=== PATIENT | female | born 1940 | race Caucasian/White ===

== ENCOUNTER 2017-08-18 19:03 | Emergency (ER) | payer OTHER, MEDICARE ==
[~2017-08-18] VITALS: Ht 167.6 cm; Wt 62.0 kg
[~2017-08-18 19:03] MED LIST: ASPIR-TRIN325 M1 PO; BISOPROLOL-HCT1 EAC3 PO; CIPRO500 MG PO; K-DUR20 MEQ PO; LOVASTATIN10 MG PO; METRONIDAZOLE500 MG PO; NORVASC2.5 MG PO; PROTONIX40 MG PO; VITAMIN A DAY1 EACH PO
[2017-08-18 19:45] LABS: BASOPHIL COUNT 0.1 K/uL (0-0.1); EOSINOPHIL (%) 6.4 % (0-5); EOSINOPHIL COUNT 0.6 K/uL (0-0.3); HEMATOCRIT 41.6 % (36.0-46.0); IMMATURE GRANULOCYTE (%) 0.2 % (0.0-0.7); INSTRUMENT ABS NEUTROPHIL CT 4.7 K/uL; LYMPHOCYTE COUNT 2.7 K/uL (1.0-2.8); MCH 30.2 PG (29.0-34.0); MCHC 34.4 G/DL (30.0-36.0); MCV 87.9 FL (83-99); MONOCYTE (%) 10.3 % (3-12); MONOCYTE COUNT 0.9 K/uL (0-0.8); NEUTROPHIL (%) 52.4 % (45-76); NEUTROPHIL COUNT 4.7 K/uL (1.8-6.4); PLATELET COUNT 211 K/uL (156-360); RBC DIS.WIDTH-CV 12.2 % (11.8-14.6); RBC DIS.WIDTH-SD 39.2 % (39-53); RED BLOOD COUNT 4.73 M/uL (3.80-5.20)
[2017-08-18 20:02] LABS: CHLORIDE 103 mEq/L (99-109); POTASSIUM 2.9 mEq/L (3.7-5.4); SODIUM 141 mEq/L (136-147)
[2017-08-18 20:03] LABS: MAGNESIUM 1.9 mg/dL (1.3-2.7)
[2017-08-18 20:04] LABS: GLUCOSE 96 mg/dL (70-99)
[2017-08-18 20:05] LABS: ANION GAP 11 MEQ/L (2-14)
[2017-08-18 20:06] LABS: TOTAL BILIRUBIN 0.6 mg/dL (0.0-1.0)
[2017-08-18 20:08] LABS: ALKALINE PHOSPHATASE 71 IU/L (3-129); GFR ESTIMATE (CALCULATED) 57 mL/min/
[2017-08-18 20:09] LABS: UREA NITROGEN (BUN) 11 mg/dL (9-23)
[2017-08-18 20:10] LABS: TROP-I INTERPRETATION NEGATIVE; TROPONIN-I < 0.01 ng/mL (0.0-0.30)
[2017-08-18 20:11] LABS: CREATINE KINASE 82 IU/L (1-294); TOTAL CK 82 IU/L (1-294)
[2017-08-18 20:18] LABS: CK-MB 1.3 ng/mL (0.0-4.9)
[2017-08-18 20:38] LABS: ADD MIUA? YES; BILIRUBIN NEGATIVE; BLOOD SMALL; COLOR YELLOW ((YELLOW)); GLUCOSE (STRIP) NEGATIVE; KETONES NEGATIVE; LEUKOCYTES LARGE; NITRITE NEGATIVE; PROTEIN (STRIP) NEGATIVE; SPECIFIC GRAVITY 1.005 (1.000-1.030); UROBILINOGEN 0.2 MG/DL (0.2-1.0)
[2017-08-18 20:47] LABS: BACTERIA RARE /HPF; EPITHELIAL CELLS NONE SEEN /HPF; MUCUS TRACE /LPF; RED BLOOD CELLS 0-5 /HPF (0-5); UCUL ADDED? YES; WHITE BLOOD CELLS TNTC /HPF (0-5)
[2017-08-18] MEDS ORDERED: ESCITALOPRAM OXA5 MG PO (20:51)
[2017-08-18] MEDS ORDERED: EFFEXOR37.5 MG PO (20:51)
[2017-08-18] MEDS ORDERED: MEMANTINE HCL10 MG PO (20:51)
[2017-08-18] MEDS ORDERED: MACROBID100 MG PO (22:39)
[2017-08-19 00:41] VITALS: BP 139/78
== END 2017-08-19 00:44 | disposition home or self-care (01) ==
LOC: EME → EDBD 19:03 → EME 08-19 00:44
PROVIDERS: Emergency Medicine
DX: I95.1 Orthostatic hypotension (principal); N39.0 Urinary tract infection, site not specified; E87.6 Hypokalemia; E86.0 Dehydration; I10 Essential (primary) hypertension; F03.90 Unspecified dementia, unspecified severity, without behavioral disturbance, psychotic disturbance, mood disturbance, and anxiety
CPT/HCPCS: 71020; 80053; 81003; 82550; 82553; 83735; 83880; 84484; 85025; 87077; 87086; 87186; 93005; 99281; 99285; J3480; J7030; J7040

== ENCOUNTER 2017-10-30 12:23 | Inpatient (IN) | payer OTHER, MEDICARE ==
[~2017-10-30] VITALS: Ht 160 cm; Wt 77.0 kg
[~2017-10-30 12:23] MED LIST changes: +EFFEXOR75 MG PO; +ESCITALOPRAM OXA5 MG PO; -LOVASTATIN10 MG PO; +LOVASTATIN20 MG PO; +MACROBID100 MG PO; +MEMANTINE HCL10 MG PO
[2017-10-30 13:17] LABS: BASOPHIL COUNT 0.1 K/uL (0-0.1); EOSINOPHIL (%) 3.6 % (0-5); EOSINOPHIL COUNT 0.3 K/uL (0-0.3); HEMATOCRIT 40.8 % (36.0-46.0); IMMATURE GRANULOCYTE (%) 1.2 % (0.0-0.7); IMMATURE GRANULOCYTE COUNT 0.1 K/uL; INSTRUMENT ABS NEUTROPHIL CT 5.3 K/uL; LYMPHOCYTE COUNT 1.6 K/uL (1.0-2.8); MCH 30.5 PG (29.0-34.0); MCHC 34.1 G/DL (30.0-36.0); MCV 89.5 FL (83-99); MEAN PLAT.VOLUME 11.1 uM^3 (9.5-12.4); MONOCYTE (%) 9.2 % (3-12); MONOCYTE COUNT 0.7 K/uL (0-0.8); NEUTROPHIL (%) 65.3 % (45-76); NEUTROPHIL COUNT 5.3 K/uL (1.8-6.4); PLATELET COUNT 184 K/uL (156-360); RBC DIS.WIDTH-CV 12.6 % (11.8-14.6); RBC DIS.WIDTH-SD 41.3 % (39-53); RED BLOOD COUNT 4.56 M/uL (3.80-5.20); WHITE BLOOD COUNT 8.1 K/uL (4.1-10.2)
[2017-10-30 13:30] LABS: CHLORIDE 100 mEq/L (99-109); POTASSIUM 3.2 mEq/L (3.7-5.4); SODIUM 143 mEq/L (136-147)
[2017-10-30 13:32] LABS: GLUCOSE 108 mg/dL (70-99)
[2017-10-30 13:33] LABS: ANION GAP 12 MEQ/L (2-14)
[2017-10-30 13:36] LABS: GFR ESTIMATE (CALCULATED) 51 mL/min/; UREA NITROGEN (BUN) 21 mg/dL (9-23)
[2017-10-30 13:41] LABS: TROP-I INTERPRETATION NEGATIVE; TROPONIN-I 0.01 ng/mL (0.0-0.30)
[2017-10-30 15:46] LABS: MAGNESIUM 1.8 mg/dL (1.3-2.7)
[2017-10-30 15:55] LABS: CREATINE KINASE 77 IU/L (1-294); TOTAL CK 77 IU/L (1-294)
[2017-10-30 16:02] LABS: CK-MB 1.1 ng/mL (0.0-4.9)
[2017-10-30] MEDS ORDERED: ZIAC 2.5/6.251 TAB PO (16:43)
[2017-10-30 19:52] LABS: TROP-I INTERPRETATION NEGATIVE; TROPONIN-I 0.01 ng/mL (0.0-0.30)
[2017-10-30 20:00] VITALS: BP 130/62
[2017-10-31 01:00] VITALS: BP 108/54
[2017-10-31 01:08] LABS: TROP-I INTERPRETATION NEGATIVE; TROPONIN-I < 0.01 ng/mL (0.0-0.30)
[2017-10-31 05:00] LABS: BASOPHIL COUNT 0.1 K/uL (0-0.1); EOSINOPHIL (%) 1.2 % (0-5); EOSINOPHIL COUNT 0.1 K/uL (0-0.3); HEMATOCRIT 37.1 % (36.0-46.0); IMMATURE GRANULOCYTE (%) 0.3 % (0.0-0.7); INSTRUMENT ABS NEUTROPHIL CT 5.7 K/uL; LYMPHOCYTE COUNT 1.1 K/uL (1.0-2.8); MCH 33.7 PG (29.0-34.0); MCHC 35.8 G/DL (30.0-36.0); MEAN PLAT.VOLUME 11.9 uM^3 (9.5-12.4); MONOCYTE (%) 8.9 % (3-12); MONOCYTE COUNT 0.7 K/uL (0-0.8); NEUTROPHIL (%) 74.3 % (45-76); NEUTROPHIL COUNT 5.7 K/uL (1.8-6.4); PLATELET COUNT 172 K/uL (156-360); RBC DIS.WIDTH-CV 12.9 % (11.8-14.6); RBC DIS.WIDTH-SD 42.3 % (39-53); RED BLOOD COUNT 3.95 M/uL (3.80-5.20); WHITE BLOOD COUNT 7.7 K/uL (4.1-10.2)
[2017-10-31 05:01] LABS: MCV 93.9 FL (83-99)
[2017-10-31 05:12] LABS: CHLORIDE 102 mEq/L (99-109); POTASSIUM 3.4 mEq/L (3.7-5.4); SODIUM 142 mEq/L (136-147)
[2017-10-31 05:14] LABS: GLUCOSE 124 mg/dL (70-99)
[2017-10-31 05:16] LABS: ANION GAP 16 MEQ/L (2-14)
[2017-10-31 05:18] LABS: GFR ESTIMATE (CALCULATED) 57 mL/min/
[2017-10-31 05:19] LABS: UREA NITROGEN (BUN) 24 mg/dL (9-23)
[2017-10-31 12:05] VITALS: BP 155/69
[2017-10-31 15:56] VITALS: BP 188/78
[2017-10-31 20:26] VITALS: BP 138/69
[2017-11-01 00:08] VITALS: BP 153/70
[2017-11-01 01:32] LABS: ADD MIUA? NO; BILIRUBIN NEGATIVE; BLOOD NEGATIVE; COLOR YELLOW ((YELLOW)); GLUCOSE (STRIP) 50; KETONES NEGATIVE; LEUKOCYTES NEGATIVE; NITRITE NEGATIVE; PROTEIN (STRIP) NEGATIVE; SPECIFIC GRAVITY 1.011 (1.000-1.030); UCUL ADDED? NO; UROBILINOGEN 0.2 MG/DL (0.2-1.0)
[2017-11-01 04:47] VITALS: BP 119/69
[2017-11-01 06:12] LABS: BASOPHIL COUNT 0.1 K/uL (0-0.1); EOSINOPHIL (%) 5.3 % (0-5); EOSINOPHIL COUNT 0.5 K/uL (0-0.3); HEMATOCRIT 39.5 % (36.0-46.0); IMMATURE GRANULOCYTE (%) 0.2 % (0.0-0.7); INSTRUMENT ABS NEUTROPHIL CT 4.8 K/uL; LYMPHOCYTE COUNT 2.3 K/uL (1.0-2.8); MCHC 33.9 G/DL (30.0-36.0); MCV 91.4 FL (83-99); MEAN PLAT.VOLUME 11.2 uM^3 (9.5-12.4); MONOCYTE (%) 11.6 % (3-12); NEUTROPHIL (%) 55.3 % (45-76); NEUTROPHIL COUNT 4.8 K/uL (1.8-6.4); PLATELET COUNT 164 K/uL (156-360); RBC DIS.WIDTH-CV 12.6 % (11.8-14.6); RBC DIS.WIDTH-SD 41.8 % (39-53); RED BLOOD COUNT 4.32 M/uL (3.80-5.20); WHITE BLOOD COUNT 8.6 K/uL (4.1-10.2)
[2017-11-01 06:39] LABS: ALKALINE PHOSPHATASE 61 IU/L (3-129); ANION GAP 9 MEQ/L (2-14); CHLORIDE 103 MEQ/L (99-109); GFR ESTIMATE (CALCULATED) > 59 mL/min/; GLUCOSE 122 mg/dL (70-99); POTASSIUM 3.8 MEQ/L (3.7-5.4); SAMPLE HEMOLYSIS CHECK 0; SAMPLE ICTERIC CHECK 0; SAMPLE LIPEMIA CHECK 0; SODIUM 142 MEQ/L (136-147); TOTAL BILIRUBIN 0.9 MG/DL (0.0-1.0); UREA NITROGEN (BUN) 16 mg/dL (9-23)
[2017-11-01 07:10] VITALS: BP 168/76
[2017-11-01 16:36] VITALS: BP 178/82
[2017-11-01 19:00] VITALS: BP 182/84
[2017-11-02 02:22] VITALS: BP 159/77
[2017-11-02 06:17] LABS: BASOPHIL COUNT 0.1 K/uL (0-0.1); EOSINOPHIL (%) 1.7 % (0-5); EOSINOPHIL COUNT 0.2 K/uL (0-0.3); HEMATOCRIT 37.5 % (36.0-46.0); IMMATURE GRANULOCYTE (%) 0.3 % (0.0-0.7); INSTRUMENT ABS NEUTROPHIL CT 5.6 K/uL; LYMPHOCYTE COUNT 1.8 K/uL (1.0-2.8); MCH 30.9 PG (29.0-34.0); MCHC 34.4 G/DL (30.0-36.0); MCV 89.9 FL (83-99); MONOCYTE (%) 11.2 % (3-12); NEUTROPHIL (%) 65.3 % (45-76); NEUTROPHIL COUNT 5.6 K/uL (1.8-6.4); PLATELET COUNT 170 K/uL (156-360); RBC DIS.WIDTH-CV 12.6 % (11.8-14.6); RBC DIS.WIDTH-SD 41.5 % (39-53); RED BLOOD COUNT 4.17 M/uL (3.80-5.20); WHITE BLOOD COUNT 8.6 K/uL (4.1-10.2)
[2017-11-02 06:43] LABS: ALKALINE PHOSPHATASE 59 IU/L (3-129); ANION GAP 9 MEQ/L (2-14); CHLORIDE 105 MEQ/L (99-109); GFR ESTIMATE (CALCULATED) > 59 mL/min/; GLUCOSE 113 mg/dL (70-99); POTASSIUM 3.4 MEQ/L (3.7-5.4); SAMPLE HEMOLYSIS CHECK 0; SAMPLE ICTERIC CHECK 0; SAMPLE LIPEMIA CHECK 0; SODIUM 142 MEQ/L (136-147); TOTAL BILIRUBIN 0.8 MG/DL (0.0-1.0); UREA NITROGEN (BUN) 10 mg/dL (9-23)
[2017-11-02 11:46] VITALS: BP 147/79
[2017-11-02 16:25] VITALS: BP 146/81
[2017-11-02 19:29] VITALS: BP 162/84
[2017-11-03 05:29] LABS: BASOPHIL COUNT 0.1 K/uL (0-0.1); EOSINOPHIL (%) 4.6 % (0-5); EOSINOPHIL COUNT 0.4 K/uL (0-0.3); HEMATOCRIT 36.4 % (36.0-46.0); IMMATURE GRANULOCYTE (%) 0.4 % (0.0-0.7); INSTRUMENT ABS NEUTROPHIL CT 3.9 K/uL; LYMPHOCYTE COUNT 2.6 K/uL (1.0-2.8); MCH 31.1 PG (29.0-34.0); MCHC 33.8 G/DL (30.0-36.0); MCV 91.9 FL (83-99); MONOCYTE (%) 14.2 % (3-12); MONOCYTE COUNT 1.1 K/uL (0-0.8); NEUTROPHIL (%) 48.5 % (45-76); NEUTROPHIL COUNT 3.9 K/uL (1.8-6.4); PLATELET COUNT 173 K/uL (156-360); RBC DIS.WIDTH-SD 43.5 % (39-53); RED BLOOD COUNT 3.96 M/uL (3.80-5.20); WHITE BLOOD COUNT 8.1 K/uL (4.1-10.2)
[2017-11-03 05:52] LABS: CHLORIDE 105 MEQ/L (99-109); GFR ESTIMATE (CALCULATED) > 59 mL/min/; GLUCOSE 99 mg/dL (70-99); POTASSIUM 3.7 MEQ/L (3.7-5.4); SAMPLE HEMOLYSIS CHECK 0; SAMPLE ICTERIC CHECK 0; SAMPLE LIPEMIA CHECK 0; SODIUM 142 MEQ/L (136-147); UREA NITROGEN (BUN) 18 mg/dL (9-23)
[2017-11-03 05:53] LABS: ANION GAP 9 MEQ/L (2-14)
[2017-11-03 08:40] VITALS: BP 201/90
[2017-11-03 20:35] VITALS: BP 118/68
[2017-11-03 23:25] VITALS: BP 104/58
[2017-11-04 05:54] LABS: BASOPHIL COUNT 0.1 K/uL (0-0.1); EOSINOPHIL COUNT 0.5 K/uL (0-0.3); HEMATOCRIT 39.3 % (36.0-46.0); IMMATURE GRANULOCYTE (%) 0.4 % (0.0-0.7); IMMATURE GRANULOCYTE COUNT 0.1 K/uL; INSTRUMENT ABS NEUTROPHIL CT 5.5 K/uL; LYMPHOCYTE COUNT 4.6 K/uL (1.0-2.8); MCH 31.7 PG (29.0-34.0); MCHC 34.1 G/DL (30.0-36.0); MCV 92.9 FL (83-99); MEAN PLAT.VOLUME 10.8 uM^3 (9.5-12.4); MONOCYTE (%) 11.3 % (3-12); MONOCYTE COUNT 1.4 K/uL (0-0.8); NEUTROPHIL (%) 45.4 % (45-76); NEUTROPHIL COUNT 5.5 K/uL (1.8-6.4); RBC DIS.WIDTH-CV 13.1 % (11.8-14.6); RBC DIS.WIDTH-SD 43.5 % (39-53); RED BLOOD COUNT 4.23 M/uL (3.80-5.20); WHITE BLOOD COUNT 12.1 K/uL (4.1-10.2)
[2017-11-04 06:10] LABS: PLATELET COUNT 246 K/uL (156-360)
[2017-11-04 06:21] LABS: ANION GAP 12 MEQ/L (2-14); CHLORIDE 103 MEQ/L (99-109); GFR ESTIMATE (CALCULATED) 46 mL/min/; GLUCOSE 126 mg/dL (70-99); POTASSIUM 3.6 MEQ/L (3.7-5.4); SAMPLE HEMOLYSIS CHECK 0; SAMPLE ICTERIC CHECK 0; SAMPLE LIPEMIA CHECK 0; SODIUM 141 MEQ/L (136-147); UREA NITROGEN (BUN) 24 mg/dL (9-23)
[2017-11-04 11:52] VITALS: BP 162/65
[2017-11-04 16:42] VITALS: BP 151/71
[2017-11-04 19:00] VITALS: BP 120/61
[2017-11-05 08:00] VITALS: BP 145/66
[2017-11-05 09:21] LABS: BASOPHIL COUNT 0.1 K/uL (0-0.1); EOSINOPHIL (%) 5.4 % (0-5); EOSINOPHIL COUNT 0.5 K/uL (0-0.3); HEMATOCRIT 38.9 % (36.0-46.0); IMMATURE GRANULOCYTE (%) 0.4 % (0.0-0.7); INSTRUMENT ABS NEUTROPHIL CT 4.5 K/uL; LYMPHOCYTE COUNT 2.7 K/uL (1.0-2.8); MCH 31.3 PG (29.0-34.0); MCHC 33.2 G/DL (30.0-36.0); MCV 94.4 FL (83-99); MEAN PLAT.VOLUME 10.9 uM^3 (9.5-12.4); MONOCYTE (%) 13.4 % (3-12); MONOCYTE COUNT 1.2 K/uL (0-0.8); NEUTROPHIL (%) 49.7 % (45-76); NEUTROPHIL COUNT 4.5 K/uL (1.8-6.4); PLATELET COUNT 191 K/uL (156-360); RBC DIS.WIDTH-CV 13.2 % (11.8-14.6); RBC DIS.WIDTH-SD 45.4 % (39-53); RED BLOOD COUNT 4.12 M/uL (3.80-5.20)
[2017-11-05 10:01] LABS: CHLORIDE 109 MEQ/L (99-109); GFR ESTIMATE (CALCULATED) > 59 mL/min/; SAMPLE HEMOLYSIS CHECK 1; SAMPLE ICTERIC CHECK 0; SAMPLE LIPEMIA CHECK 0; SODIUM 142 MEQ/L (136-147); UREA NITROGEN (BUN) 28 mg/dL (9-23)
[2017-11-05 10:02] LABS: ANION GAP 7 MEQ/L (2-14); GLUCOSE 90 mg/dL (70-99); POTASSIUM 4.6 MEQ/L (3.7-5.4)
[2017-11-05 12:00] VITALS: BP 164/78
[2017-11-05 21:00] VITALS: BP 128/60
[2017-11-06 03:35] VITALS: BP 107/57
[2017-11-06 07:57] VITALS: BP 135/62
[2017-11-06 11:58] VITALS: BP 127/68
[2017-11-06] MEDS ORDERED: LISINOPRIL20 MG PO (12:34)
[2017-11-06 16:33] VITALS: BP 111/54
[2017-11-07] MEDS ORDERED: KEFLEX500 MG PO (10:53)
== END 2017-11-06 16:22 | DRG 57 ==
LOC: EME 12:23 → EDOF 14:40 → 5WEST 14:40 → EDOF 14:40 → ENRESERV 14:41 → 5WEST 17:28 → ENRESERV 11-01 23:51 → CANRESERV 11-01 23:51 → 5WEST 11-06 16:22
PROVIDERS: Emergency Medicine; Hospitalist; Physician Assistant
DX: G30.9 Alzheimer's disease, unspecified (principal); F02.81 Dementia in other diseases classified elsewhere, unspecified severity, with behavioral disturbance; F05 Delirium due to known physiological condition; R55 Syncope and collapse; R00.1 Bradycardia, unspecified; E87.6 Hypokalemia; E78.5 Hyperlipidemia, unspecified; I10 Essential (primary) hypertension; I25.10 Atherosclerotic heart disease of native coronary artery without angina pectoris; G43.909 Migraine, unspecified, not intractable, without status migrainosus; S30.0XXA Contusion of lower back and pelvis, initial encounter; W19.XXXA Unspecified fall, initial encounter; W22.01XA Walked into wall, initial encounter; Y92.002 Bathroom of unspecified non-institutional (private) residence as the place of occurrence of the external cause; R29.6 Repeated falls
CPT/HCPCS: 70450; 71010; 72125; 72131; 80048; 80053; 81003; 82550; 82550 91; 82553; 82607; 82746; 83735; 84443; 84484; 85025; 93005; 93880; 95819; 99281; 99285; G0378; J0360; J1630; J1650; J2060; J2270

== ENCOUNTER 2017-11-07 07:13 | Inpatient (IN) | payer OTHER, MEDICARE ==
[~2017-11-07] VITALS: Ht 167.6 cm; Wt 61.3 kg
[~2017-11-07 07:13] MED LIST changes: +LISINOPRIL20 MG PO; +ZIAC 2.5/6.251 TAB PO
[2017-11-07 08:09] LABS: HEMATOCRIT 35.5 % (36.0-46.0); MCH 31.1 PG (29.0-34.0); MCHC 33.8 G/DL (30.0-36.0); PLATELET COUNT 212 K/uL (156-360); RBC DIS.WIDTH-CV 13.1 % (11.8-14.6); RBC DIS.WIDTH-SD 43.9 % (39-53); RED BLOOD COUNT 3.86 M/uL (3.80-5.20)
[2017-11-07 08:17] LABS: APPEARANCE SL.HAZY ((CLEAR)); BILIRUBIN NEGATIVE; BLOOD NEGATIVE; COLOR YELLOW ((YELLOW)); GLUCOSE (STRIP) 50; KETONES NEGATIVE; LEUKOCYTES MODERATE; NITRITE NEGATIVE; PROTEIN (STRIP) 30; UROBILINOGEN 0.2 MG/DL (0.2-1.0)
[2017-11-07 08:21] LABS: BACTERIA NONE SEEN /HPF; EPITHELIAL CELLS RARE /HPF; HYALINE CASTS TNTC /LPF; MUCUS 2+ /LPF
[2017-11-07 08:36] LABS: ALBUMIN 3.8 G/DL (3.2-4.8); CHLORIDE 106 MEQ/L (99-109); SODIUM 141 MEQ/L (136-147); TOTAL BILIRUBIN 0.7 MG/DL (0.0-1.0)
[2017-11-07 08:43] LABS: ALKALINE PHOSPHATASE 64 IU/L (3-129); ALT (GPT) 14 IU/L (3-49); AST (GOT) 18 IU/L (2-34); GFR ESTIMATE (CALCULATED) 36 mL/min/; GLUCOSE 101 mg/dL (70-99); TOTAL PROTEIN 6.7 G/DL (6.4-8.3)
[2017-11-07 08:44] LABS: CREATININE 1.5 MG/DL (0.6-1.3); UREA NITROGEN (BUN) 43 mg/dL (9-23)
[2017-11-07] MEDS ORDERED: KEFLEX500 MG PO (10:53)
[2017-11-07 19:40] VITALS: BP 142/65
[2017-11-07 23:12] VITALS: BP 119/57
[2017-11-08 04:11] VITALS: BP 106/55
[2017-11-08 06:35] LABS: CHLORIDE 108 MEQ/L (99-109); CREATININE 0.8 MG/DL (0.6-1.3); GFR ESTIMATE (CALCULATED) > 59 mL/min/; GLUCOSE 81 mg/dL (70-99); POTASSIUM 3.7 MEQ/L (3.7-5.4); SODIUM 142 MEQ/L (136-147); UREA NITROGEN (BUN) 22 mg/dL (9-23)
[2017-11-08 15:24] VITALS: BP 133/62
[2017-11-08 23:02] VITALS: BP 144/63
[2017-11-09 07:24] VITALS: BP 107/54
[2017-11-09 16:26] VITALS: BP 164/73
[2017-11-10 04:16] VITALS: BP 150/84
[2017-11-10 07:18] VITALS: BP 127/60
[2017-11-10 15:21] VITALS: BP 155/72
[2017-11-10 23:36] VITALS: BP 134/72
[2017-11-11 07:38] VITALS: BP 153/72
[2017-11-11 15:00] VITALS: BP 127/61
[2017-11-12 07:16] VITALS: BP 164/77
[2017-11-13 07:40] VITALS: BP 136/63
[2017-11-13 15:44] VITALS: BP 126/60
[2017-11-14 00:03] VITALS: BP 152/67
[2017-11-14 07:25] VITALS: BP 143/69
[2017-11-14 15:28] VITALS: BP 166/77
[2017-11-14 23:22] VITALS: BP 151/74
[2017-11-15 07:46] VITALS: BP 181/78
[2017-11-15 09:31] LABS: HEMATOCRIT 36.2 % (36.0-46.0); HEMOGLOBIN 12.1 G/DL (11.9-15.5); MCH 31.2 PG (29.0-34.0); MCHC 33.4 G/DL (30.0-36.0); MCV 93.3 FL (83-99); PLATELET COUNT 218 K/uL (156-360); RBC DIS.WIDTH-CV 12.9 % (11.8-14.6); RBC DIS.WIDTH-SD 43.9 % (39-53); RED BLOOD COUNT 3.88 M/uL (3.80-5.20)
[2017-11-15 10:00] LABS: CHLORIDE 107 MEQ/L (99-109); CREATININE 0.9 MG/DL (0.6-1.3); GFR ESTIMATE (CALCULATED) > 59 mL/min/; GLUCOSE 114 mg/dL (70-99); POTASSIUM 3.5 MEQ/L (3.7-5.4); SODIUM 141 MEQ/L (136-147); UREA NITROGEN (BUN) 24 mg/dL (9-23)
[2017-11-15 15:41] VITALS: BP 176/80
[2017-11-16 08:13] VITALS: BP 162/80
[2017-11-17 00:06] VITALS: BP 171/73
[2017-11-17 08:01] VITALS: BP 159/74
[2017-11-17 09:29] LABS: HEMATOCRIT 35.2 % (36.0-46.0); HEMOGLOBIN 11.7 G/DL (11.9-15.5); MCH 30.5 PG (29.0-34.0); MCHC 33.2 G/DL (30.0-36.0); MCV 91.7 FL (83-99); PLATELET COUNT 228 K/uL (156-360); RBC DIS.WIDTH-CV 13.2 % (11.8-14.6); RBC DIS.WIDTH-SD 44.1 % (39-53); RED BLOOD COUNT 3.84 M/uL (3.80-5.20)
[2017-11-17 10:00] LABS: CHLORIDE 107 MEQ/L (99-109); CREATININE 0.9 MG/DL (0.6-1.3); GFR ESTIMATE (CALCULATED) > 59 mL/min/; GLUCOSE 93 mg/dL (70-99); SODIUM 141 MEQ/L (136-147); UREA NITROGEN (BUN) 21 mg/dL (9-23)
[2017-11-17 10:04] LABS: POTASSIUM 4.5 MEQ/L (3.7-5.4)
[2017-11-17 16:09] VITALS: BP 132/86
[2017-11-17 23:15] VITALS: BP 165/97
[2017-11-18 08:50] VITALS: BP 122/90
[2017-11-19 00:01] VITALS: BP 144/64
[2017-11-19 03:24] VITALS: BP 118/67
[2017-11-19 07:54] VITALS: BP 134/71
[2017-11-19 15:56] VITALS: BP 129/63
[2017-11-19 23:12] VITALS: BP 142/85
[2017-11-20 07:37] VITALS: BP 188/96
[2017-11-20 10:23] LABS: HEMATOCRIT 39.4 % (36.0-46.0); HEMOGLOBIN 13.3 G/DL (11.9-15.5); IMM.RETIC FRACTION 8.4 % (3-19); MCH 31.1 PG (29.0-34.0); MCHC 33.8 G/DL (30.0-36.0); MCV 92.1 FL (83-99); PLATELET COUNT 264 K/uL (156-360); RBC DIS.WIDTH-CV 13.1 % (11.8-14.6); RBC DIS.WIDTH-SD 43.5 % (39-53); RED BLOOD COUNT 4.28 M/uL (3.80-5.20); RETICULOCYTE COUNT 2.2 % (0.5-1.8); WHITE BLOOD COUNT 8.1 K/uL (4.1-10.2)
[2017-11-20 11:06] LABS: ALBUMIN 4.2 G/DL (3.2-4.8); ALKALINE PHOSPHATASE 101 IU/L (3-129); ALT (GPT) 13 IU/L (3-49); AST (GOT) 18 IU/L (2-34); CHLORIDE 105 MEQ/L (99-109); CREATININE 1.2 MG/DL (0.6-1.3); GFR ESTIMATE (CALCULATED) 46 mL/min/; GLUCOSE 120 mg/dL (70-99); IRON 87 MCG/DL (35-150); SODIUM 142 MEQ/L (136-147); TOTAL BILIRUBIN 0.5 MG/DL (0.0-1.0); TOTAL PROTEIN 7.3 G/DL (6.4-8.3); TRANSFERRIN (TIBC) 276.8 mg/dL (215-380); UREA NITROGEN (BUN) 26 mg/dL (9-23)
[2017-11-20 11:07] LABS: FERRITIN 180 NG/ML (10-291); POTASSIUM 3.5 MEQ/L (3.7-5.4); TRANSFERRIN SATUR. 31 % (20-55)
[2017-11-20 11:10] LABS: FOLIC ACID (FOLATE) 9.9 NG/ML (5.0-22.0)
[2017-11-20 16:58] VITALS: BP 161/74
[2017-11-21 00:34] VITALS: BP 122/58
[2017-11-21 07:57] VITALS: BP 140/68
[2017-11-21 16:05] VITALS: BP 135/62
[2017-11-21 23:13] VITALS: BP 161/75
[2017-11-22 09:18] LABS: CHLORIDE 109 MEQ/L (99-109); SODIUM 142 MEQ/L (136-147)
[2017-11-22 09:23] LABS: CREATININE 0.9 MG/DL (0.6-1.3); GFR ESTIMATE (CALCULATED) > 59 mL/min/; GLUCOSE 94 mg/dL (70-99); UREA NITROGEN (BUN) 23 mg/dL (9-23)
[2017-11-22 17:11] VITALS: BP 134/63
[2017-11-22 23:18] VITALS: BP 108/53
[2017-11-23 05:46] LABS: HEMATOCRIT 33.5 % (36.0-46.0); MCH 30.7 PG (29.0-34.0); MCHC 33.1 G/DL (30.0-36.0); MCV 92.8 FL (83-99); PLATELET COUNT 217 K/uL (156-360); RBC DIS.WIDTH-SD 44.4 % (39-53); RED BLOOD COUNT 3.61 M/uL (3.80-5.20); WHITE BLOOD COUNT 7.6 K/uL (4.1-10.2)
[2017-11-23 05:47] LABS: HEMOGLOBIN 11.1 G/DL (11.9-15.5)
[2017-11-23 05:55] LABS: CHLORIDE 109 MEQ/L (99-109); CREATININE 0.8 MG/DL (0.6-1.3); GFR ESTIMATE (CALCULATED) > 59 mL/min/; GLUCOSE 97 mg/dL (70-99); POTASSIUM 3.7 MEQ/L (3.7-5.4); SODIUM 143 MEQ/L (136-147); UREA NITROGEN (BUN) 23 mg/dL (9-23)
[2017-11-23 08:07] VITALS: BP 127/60
[2017-11-23 15:34] VITALS: BP 120/65
[2017-11-24 00:15] VITALS: BP 114/58
[2017-11-24 06:34] LABS: HEMATOCRIT 33.9 % (36.0-46.0); HEMOGLOBIN 11.3 G/DL (11.9-15.5); MCH 31.2 PG (29.0-34.0); MCHC 33.3 G/DL (30.0-36.0); MCV 93.6 FL (83-99); PLATELET COUNT 200 K/uL (156-360); RBC DIS.WIDTH-CV 12.8 % (11.8-14.6); RBC DIS.WIDTH-SD 44.4 % (39-53); RED BLOOD COUNT 3.62 M/uL (3.80-5.20); WHITE BLOOD COUNT 8.5 K/uL (4.1-10.2)
[2017-11-24 06:51] LABS: CHLORIDE 106 MEQ/L (99-109); CREATININE 1.1 MG/DL (0.6-1.3); GFR ESTIMATE (CALCULATED) 51 mL/min/; GLUCOSE 91 mg/dL (70-99); SODIUM 143 MEQ/L (136-147); UREA NITROGEN (BUN) 27 mg/dL (9-23)
[2017-11-24 08:04] VITALS: BP 115/68
[2017-11-24 16:53] VITALS: BP 148/81
[2017-11-25 00:14] VITALS: BP 105/52
[2017-11-25 08:31] VITALS: BP 110/55
[2017-11-25 16:30] VITALS: BP 115/58
[2017-11-25 23:47] VITALS: BP 125/61
[2017-11-26 08:06] VITALS: BP 145/63
[2017-11-26 16:32] VITALS: BP 145/70
[2017-11-26 23:33] VITALS: BP 132/60
[2017-11-27 08:07] VITALS: BP 106/52
[2017-11-27 16:11] VITALS: BP 153/77
[2017-11-27 23:11] VITALS: BP 119/61
[2017-11-28 08:06] VITALS: BP 150/70
[2017-11-28 16:36] VITALS: BP 143/75
[2017-11-29 00:34] VITALS: BP 117/59
[2017-11-29 07:52] VITALS: BP 154/76
[2017-11-29] MEDS ORDERED: LACTULOSE10 GM/151 PO (12:17)
[2017-11-29] MEDS ORDERED: AMLODIPINE BESY10 MG PO (12:17)
[2017-11-29] MEDS ORDERED: ZIPRASIDONE HCL40 MG PO (12:17)
[2017-11-29] MEDS ORDERED: ESCITALOPRAM OX10 MG PO (12:17)
== END 2017-11-29 15:43 | disposition home health service (06) | DRG 57 ==
LOC: EME 07:13 → EDOF 14:39 → 3EAST 14:39 → EDOF 14:39 → ENRESERV 14:41 → 3EAST 16:44
PROVIDERS: Family Medicine; Hospitalist; Nurse Practitioner Family; Physician Assistant
DX: G30.9 Alzheimer's disease, unspecified (principal); F02.81 Dementia in other diseases classified elsewhere, unspecified severity, with behavioral disturbance; R45.6 Violent behavior; Z74.3 Need for continuous supervision; Z75.1 Person awaiting admission to adequate facility elsewhere; N17.9 Acute kidney failure, unspecified; E78.5 Hyperlipidemia, unspecified; F32.9 Major depressive disorder, single episode, unspecified; I10 Essential (primary) hypertension; I25.10 Atherosclerotic heart disease of native coronary artery without angina pectoris; G43.909 Migraine, unspecified, not intractable, without status migrainosus; M54.9 Dorsalgia, unspecified; M79.604 Pain in right leg; M79.605 Pain in left leg
CPT/HCPCS: 70551; 71020; 80048; 80053; 81003; 82607; 82728; 82746; 83540; 83605; 84466; 85027; 87086; 90839; 93005; 99281; 99284; G0378; G8987 GO CI; G8988 GO CH; J1630; J1650; J2060; J7030

== ENCOUNTER 2018-07-01 17:07 | Emergency (ER) | payer OTHER, MEDICARE ==
[~2018-07-01] VITALS: Ht 162.6 cm; Wt 63.6 kg
[~2018-07-01 17:07] MED LIST changes: +AMLODIPINE BESY10 MG PO; +ESCITALOPRAM OX10 MG PO; +KEFLEX500 MG PO; +LACTULOSE10 GM/151 PO; +ZIPRASIDONE HCL40 MG PO
[2018-07-01 17:22] LABS: BASOPHIL (%) 0.6 % (0-1); BASOPHIL COUNT 0.1 K/uL (0-0.1); EOSINOPHIL COUNT 0.5 K/uL (0-0.3); HEMATOCRIT 39.7 % (36.0-46.0); HEMOGLOBIN 13.6 G/DL (11.9-15.5); IMMATURE GRANULOCYTE (%) 0.4 % (0.0-0.7); LYMPHOCYTE (%) 36.9 % (15-42); LYMPHOCYTE COUNT 4.2 K/uL (1.0-2.8); MCH 30.6 PG (29.0-34.0); MCHC 34.3 G/DL (30.0-36.0); MCV 89.2 FL (83-99); MONOCYTE (%) 9.7 % (3-12); MONOCYTE COUNT 1.1 K/uL (0-0.8); NEUTROPHIL (%) 48.4 % (45-76); NEUTROPHIL COUNT 5.5 K/uL (1.8-6.4); PLATELET COUNT 247 K/uL (156-360); RBC DIS.WIDTH-CV 11.9 % (11.8-14.6); RBC DIS.WIDTH-SD 38.5 % (39-53); RED BLOOD COUNT 4.45 M/uL (3.80-5.20); WHITE BLOOD COUNT 11.4 K/uL (4.1-10.2)
[2018-07-01 17:29] LABS: PTT 27.8 SEC (25-37)
[2018-07-01 17:32] LABS: AMYLASE 48 IU/L (1-118); CHLORIDE 104 mEq/L (99-109); POTASSIUM 3.8 mEq/L (3.7-5.4); SODIUM 142 mEq/L (136-147)
[2018-07-01 17:34] LABS: GLUCOSE 104 mg/dL (70-99)
[2018-07-01 17:37] LABS: SERUM ETHYL ALCOHOL < 10 mg/dL
[2018-07-01 17:38] LABS: CREATININE 0.9 mg/dL (0.6-1.3); GFR ESTIMATE (CALCULATED) > 59 mL/min/
[2018-07-01 17:39] LABS: UREA NITROGEN (BUN) 12 mg/dL (9-23)
[2018-07-01 17:41] LABS: LIPASE 25 U/L (1.0-51.0)
[2018-07-01 17:45] LABS: TROP-I INTERPRETATION NEGATIVE; TROPONIN-I < 0.01 ng/mL (0.0-0.30)
[2018-07-01 20:54] LABS: APPEARANCE CLEAR ((CLEAR)); BILIRUBIN NEGATIVE; BLOOD NEGATIVE; COLOR STRAW ((YELLOW)); GLUCOSE (STRIP) NEGATIVE; KETONES NEGATIVE; LEUKOCYTES SMALL; NITRITE NEGATIVE; PROTEIN (STRIP) NEGATIVE; UROBILINOGEN 0.2 MG/DL (0.2-1.0)
[2018-07-01 21:07] LABS: BACTERIA NONE SEEN /HPF; EPITHELIAL CELLS RARE /HPF; HYALINE CASTS 0-5 /LPF; MUCUS TRACE /LPF; RED BLOOD CELLS 0-5 /HPF (0-5); UCUL ADDED? YES
[2018-07-01 21:19] LABS: AMPHETAMINE NEGATIVE (500 ng/mL); BARBITURATES NEGATIVE (200 ng/mL); BENZODIAZEPINES NEGATIVE (150 ng/mL); BUPRENORPHINE NEGATIVE (10 ng/mL); COCAINE NEGATIVE (150 ng/mL); METHADONE NEGATIVE (200 ng/mL); METHAMPHETAMINE NEGATIVE (500 ng/mL); OPIATES (MORPHINE) NEGATIVE (100 ng/mL); OXYCODONE NEGATIVE (100 ng/mL); PHENCYCLIDINE NEGATIVE (25 ng/mL); PROPOXYPHENE NEGATIVE (300 ng/mL); THC CANNABINOIDS NEGATIVE (50 ng/mL); TRICYCLIC ANTIDEPRESSANTS NEGATIVE (300 ng/mL)
[2018-07-01 22:14] VITALS: BP 135/68
== END 2018-07-01 22:15 | disposition home or self-care (01) ==
LOC: EME 17:07
PROVIDERS: Emergency Medicine
DX: F03.90 Unspecified dementia, unspecified severity, without behavioral disturbance, psychotic disturbance, mood disturbance, and anxiety (principal); R41.0 Disorientation, unspecified; I10 Essential (primary) hypertension; G43.909 Migraine, unspecified, not intractable, without status migrainosus; Z88.5 Allergy status to narcotic agent
CPT/HCPCS: 70450; 70496; 70498; 71045; 80048; 81003; 82150; 83690; 84484; 85025; 85610; 85730; 86850; 86900; 86901; 87086 GA; 93005; 99281; 99285; G0480